=== PATIENT | male | born 2000 | race Caucasian/White ===

== ENCOUNTER 2021-06-21 21:18 | Emergency (ER) | payer OTHER ==
[~2021-06-21] VITALS: Ht 185.4 cm; Wt 147.4 kg
[2021-06-21] MEDS ORDERED: TRAMADOL 50 MG50 MG PO (23:45)
[2021-06-22 00:37] VITALS: BP 128/74
== END 2021-06-22 00:37 | disposition home or self-care (01) ==
LOC: M.ERS 21:18
DX: S93.402A Sprain of unspecified ligament of left ankle, initial encounter (principal); Z98.890 Other specified postprocedural states; Z88.0 Allergy status to penicillin; X50.9XXA Other and unspecified overexertion or strenuous movements or postures, initial encounter; Y93.89 Activity, other specified; Y92.89 Other specified places as the place of occurrence of the external cause; Y99.8 Other external cause status